=== PATIENT | male | born 1965 | race Caucasian/White ===

== ENCOUNTER 2017-03-08 19:32 | Emergency (ER) | payer OTHER ==
[~2017-03-08 19:32] MED LIST: ASPIRIN EC325 MG PO; FLUTICASONE PR50 MCG; OXAYDO5 MG; OXYCODONE/ACETA1 TA1 PO; SUDAFED CONGEST30 MG; TESTOSTERON200 MG/M1; TOPROL XL100 MG PO; TRAZODONE HCL50 MG PO
--- NOTE | 2017-03-08 21:42 | ED MAR SUMMARY ---
..... Medication Administration Record [facility] [address], [place] [id number] Patient: YAMINI YANES Visit ID: [id number] 51y, M Weight: 85.7 kg Height/Length: 65 in BMI: 31.5 ALLERGIES: Ibuprofen, Lidocaine
--- NOTE | 2017-03-08 21:42 | ED DISCHARGE INSTRUCTIONS ---
Patient: YAMINI YANES General Instructions [facility] VisitID: [id number] [place] [address] 51y, M Registration Date/Time: 03/08/2017 Recurrent maxillary, ethmoidal and frontal sinusitis INSTRUCTIONS Drink plenty of fluids for the next 24 hours. (continue with nasal spray, and may consider trying saline sinus washes). Warnings: GENERAL WARNINGS: Return or contact your physician immediately if your condition worsens or changes unexpectedly, if not improving as expected, or if other problems arise. Specifically return if problem worsens. Prescription Medications: Augmentin 875 mg: take 1 tablet orally every 12 hours for 10 days. No refill. Blue Eye 5 mg / 325 mg tablets: take 1 orally every 6 hours as needed for pain. Dispense five (5). No refill. Follow-up: Follow up with your doctor in about three days even if well. Call for an appointment. Summary of care provided to patient. Understanding of the discharge instructions verbalized by patient. ADDITIONAL INFORMATION Sinusitis [Abx Tx] The sinuses are air-filled spaces within the bones of the face. They connect to the inside of the nose. Sinusitis is an inflammation of the tissue lining the sinus cavity. Sinus inflammation can occur during a cold or hay-fever (allergies to pollens and other particles in the air) and cause symptoms of sinus congestion and fullness. A sinus infection causes fever, headache and facial pain. There is usually green or yellow drainage from the nose or into the back of the throat (post-nasal drip). Antibiotics are prescribed to treat this condition. Home Care: Drink plenty of water, hot tea, and other liquids to stay well hydrated. This thins the mucus and promotes sinus drainage. Apply heat to the painful areas of the face. Use a towel soaked in hot water. Or, informaticist the shower and direct the hot spray onto your face. This is a good way to inhale warm water vapor and get heat on your face at the same time. (Cover your mouth and nose with your hands so you can still breathe as you do this.) Use a vaporizer with products such as [employer] VapoRub (contains menthol) at night. Suck on peppermint, menthol or eucalyptus hard candies during the day. An expectorant containing guaifenesin (such as Robitussin), helps to thin the mucus and promote drainage from the sinuses. Chwz-dhd-rmuczgd decongestants may be used unless a similar medicine was prescribed. Nasal sprays work the fastest. Use one that contains phenylephrine (Esvin-synephrine, Sinex and others) or oxymetazoline (Afrin). First blow the nose gently to remove mucus, then apply the drops. Do not use these medicines more often than directed on the label or for more than three days or symptoms may worsen. You may also use tablets containing pseudoephedrine (Sudafed). Many sinus remedies combine ingredients, which may increase side effects. Read the labels or ask the pharmacist for help. NOTE: Persons with high blood pressure should not use decongestants. They can raise blood pressure. Antihistamines are useful if allergies are a cause of your sinusitis. The mildest one is chlorpheniramine (available without a prescription). The dose for adults is 8-12mg three times a day. [NOTE: Do not use chlorpheniramine if you have glaucoma or if you are a man with trouble urinating due to an enlarged prostate.] Claritin (loratidine) is an antihistamine that causes less drowsiness and is a good alternative for daytime use. Do not use nasal rinses or irrigation during an acute sinus infection, unless advised by your doctor. Rinsing may spread the infection to other sinuses. You may use acetaminophen (Tylenol) or ibuprofen (Motrin, Advil) to control pain, unless another pain medicine was prescribed. [ NOTE: If you have chronic liver or kidney disease or ever had a stomach ulcer, talk with your doctor before using these medicines.] (Aspirin should never be used in anyone under 18 years of age who is ill with a fever. It may cause severe liver damage.) Finish the full course, even if you are feeling better after a few days. Follow Up with your doctor or this facility in one week or as instructed by our staff if not improving. Get Prompt Medical Attention if any of the following occur: Facial pain or headache becomes more severe Stiff neck Unusual drowsiness or confusion, or not acting like your normal self Swelling of the forehead or eyelids Vision problems including blurred or double vision Fever of 100.4F (38C) or higher, or as directed by your healthcare provider Seizure Amoxicillin Trihydrate, Clavulanate Potassium Oral tablet What is this medicine? AMOXICILLIN; CLAVULANIC ACID (a mox i ADRIANA in; BRYSON chavez ic id) is a penicillin antibiotic. It is used to treat certain kinds of bacterial infections. It will not work for colds, flu, or other viral infections. How should I use this medicine? Take this medicine by mouth with a full glass of water. Follow the directions on the prescription label. Take at the start of a meal. Do not crush or chew. If the tablet has a score line, you may cut it in half at the score line for easier swallowing. Take your medicine at regular intervals. Do not take your medicine more often than directed. Take all of your medicine as directed even if you think you are better. Do not skip doses or stop your medicine early. Talk to your preschool program director regarding the use of this medicine in children. Special care may be needed. What side effects may I notice from receiving this medicine? Side effects that you should report to your doctor or health nonfarm animal caretaker as soon as possible: allergic reactions like skin rash, itching or hives, swelling of the face, lips, or tongue breathing problems dark urine fever or chills, sore throat redness, blistering, peeling or loosening of the skin, including inside the mouth seizures trouble passing urine or change in the amount of urine unusual bleeding, bruising unusually weak or tired white patches or sores in the mouth or throat Side effects that usually do not require medical attention (report to your doctor or health nonfarm animal caretaker if they continue or are bothersome): diarrhea dizziness headache nausea, vomiting stomach upset vaginal or anal irritation What may interact with this medicine? allopurinol anticoagulants control pills methotrexate probenecid What if I miss a dose? If you miss a dose, take it as soon as you can. If it is almost time for your next dose, take only that dose. Do not take double or extra doses. Where should I keep my medicine? Keep out of the reach of children. Store at room temperature below 25 degrees C (77 degrees F). Keep container tightly closed. Throw away any unused medicine after the expiration date. What should I tell my health care provider before I take this medicine? They need to know if you have any of these conditions: bowel disease, like colitis kidney disease liver disease mononucleosis an unusual or allergic reaction to amoxicillin, penicillin, cephalosporin, other antibiotics, clavulanic acid, other medicines, foods, dyes, or preservatives or trying to get breast-feeding What should I watch for while using this medicine? Tell your doctor or health nonfarm animal caretaker if your symptoms do not improve. Do not treat diarrhea with over the counter products. Contact your doctor if you have diarrhea that lasts more than 2 days or if it is severe and watery. If you have diabetes, you may get a false-positive result for sugar in your urine. Check with your doctor or health nonfarm animal caretaker. control pills may not work properly while you are taking this medicine. Talk to your doctor about using an extra method of control. Hydrocodone Bitartrate, Acetaminophen Oral tablet What is this medicine? ACETAMINOPHEN; HYDROCODONE (a set a BENY abhi fen; page droe KOE done) is a pain reliever. It is used to treat mild to moderate pain. How should I use this medicine? Take this medicine by mouth. Swallow it with a full glass of water. Follow the directions on the prescription label. If the medicine upsets your stomach, take the medicine with food or milk. Do not take more than you are told to take. Talk to your preschool program director regarding the use of this medicine in children. This medicine is not approved for use in children. What side effects may I notice from receiving this medicine? Side effects that you should report to your doctor or health nonfarm animal caretaker as soon as possible: allergic reactions like skin rash, itching or hives, swelling of the face, lips, or tongue breathing problems confusion feeling faint or lightheaded, falls stomach pain yellowing of the eyes or skin Side effects that usually do not require medical attention (report to your doctor or health nonfarm animal caretaker if they continue or are bothersome): nausea, vomiting stomach upset What may interact with this medicine? alcohol antihistamines isoniazid medicines for depression, anxiety, or psychotic disturbances medicines for sleep muscle relaxants naltrexone narcotic medicines (opiates) for pain phenobarbital ritonavir tramadol What if I miss a dose? If you miss a dose, take it as soon as you can. If it is almost time for your next dose, take only that dose. Do not take double or extra doses. Where should I keep my medicine? Keep out of the reach of children. This medicine can be abused. Keep your medicine in a safe place to protect it from theft. Do not share this medicine with anyone. Selling or giving away this medicine is dangerous and against the law. Store at room temperature between 15 and 30 degrees C (59 and 86 degrees F). Protect from light. Keep container tightly closed. Throw away any unused medicine after the expiration date. Discard unused medicine and used packaging carefully. Pets and children can be harmed if they find used or lost packages. What should I tell my health care provider before I take this medicine? They need to know if you have any of these conditions: brain tumor Crohn's disease, inflammatory bowel disease, or ulcerative colitis drink more than 3 alcohol-containing drinks per day drug abuse or addiction head injury heart or circulation problems kidney disease or problems going to the bathroom liver disease lung disease, asthma, or breathing problems an unusual or allergic reaction to acetaminophen, hydrocodone, other opioid analgesics, other medicines, foods, dyes, or preservatives or trying to get breast-feeding What should I watch for while using this medicine? Tell your doctor or health nonfarm animal caretaker if your pain does not go away, if it gets worse, or if you have new or a different type of pain. You may develop tolerance to the medicine. Tolerance means that you will need a higher dose of the medicine for pain relief. Tolerance is normal and is expected if you take the medicine for a long time. Do not suddenly stop taking your medicine because you may develop a severe reaction. Your body becomes used to the medicine. This does NOT mean you are addicted. Addiction is a behavior related to getting and using a drug for a non-medical reason. If you have pain, you have a medical reason to take pain medicine. Your doctor will tell you how much medicine to take. If your doctor wants you to stop the medicine, the dose will be slowly lowered over time to avoid any side effects. You may get drowsy or dizzy when you first start taking the medicine or change doses. Do not drive, use machinery, or do anything that may be dangerous until you know how the medicine affects you. Stand or sit up slowly. There are different types of narcotic medicines (opiates) for pain. If you take more than one type at the same time, you may have more side effects. Give your health care provider a list of all medicines you use. Your doctor will tell you how much medicine to take. Do not take more medicine than directed. Call emergency for help if you have problems breathing. The medicine will cause constipation. Try to have a bowel movement at least every 2 to 3 days. If you do not have a bowel movement for 3 days, call your doctor or health nonfarm animal caretaker. Too much acetaminophen can be very dangerous. Do not take Tylenol (acetaminophen) or medicines that contain acetaminophen with this medicine. Many non-prescription medicines contain acetaminophen. Always read the labels carefully. You have been given the following additional information: Sinusitis, Abx Tx Amoxicillin Trihydrate, Clavulanate Potassium Oral tablet Hydrocodone Bitartrate, Acetaminophen Oral tablet (Electronically signed by Essie Reyes A.R.N.PJerel 03/08/2017 21:41)
--- NOTE | 2017-03-08 21:42 | ED MAR SUMMARY ---
..... Medication Administration Record [facility] [address], [place] [id number] Patient: YAMINI YANES Visit ID: [id number] 51y, M Weight: 85.7 kg Height/Length: 65 in BMI: 31.5 ALLERGIES: Ibuprofen, Lidocaine
--- NOTE | 2017-03-08 21:42 | ED NURSING NOTES ---
Clinical Report - [facility] [address] [place] [address] 03/08/2017 19:32 Patient: YAMINI YANES TRIAGE Triage time 1940. Acuity: LEVEL 5. Chief Complaint: RUNNY NOSE and FEVER. Alert. No acute distress. SEPSIS SCREEN: Sepsis Screen. Negative (no infection suspected/documented). --19:56 Renetta Whitaker R.N. 19:42 03/08/17. BP: 135/81 (regular adult cuff) taken on the left arm, via an automated monitor, while sitting. HR: 96. RR: 18. O2 saturation: 96% on room air. Temp: 98.3 F (oral). Pain level now: 8/10. --19:56 Renetta Whitaker R.N. Weight: 85.7 kg stated. Height/Length: 65 inches Per Patient. BMI: 31.5. --19:43 Renetta Whitaker R.N. Medications TraZODone HCl Oral. --20:01 Renetta Whitaker R.N. Metoprolol Tartrate Oral 100 mg. --20:02 Renetta Whitaker R.N. Ranitidine HCl Oral. --20:03 Renetta Whitaker R.N. Allergies Ibuprofen. Lidocaine. --19:47 Renetta Whitaker R.N. The following entry was struck by Renetta Whitaker R.N., 20:01 (03/08/17) Reason - other. <<STRICKEN ENTRY-- Tylenol. --19:47 Renetta Whitaker R.N. --END STRIKE>>. Medication/allergy information source: the patient. --19:56 Renetta Whitaker R.N. History Arrived by private vehicle. Historian: patient. Accompanied by family and friend. Primary physician (Dr. Bryan Busch ( [facility])). ( Pt states having a hx of sinus infections/problems, approximately one week ago after doing a major cleaning in attic, pt started having head congestion, runny nose, productive yellowish cough, chills, sweats, neck feels swollen specially (left side), H/A. Denies feeling dizzy or SOB, or RODNEY. Here for further evaluation, unable to see PCP due to distance and availability.). Onset. (1 week). He has had a nasal discharge, chills, fatigue, a headache and sinus pain. No difficulty breathing. Treatment LINE ASSIGNER: (sudafed 4pm, Tylenol (9am)). PAST MEDICAL HX: Immunizations: up-to-date. SOCIAL HX: Smoker- current status unknown. No alcohol use or drug use. No infectious disease exposure. ABUSE ASSESSMENT: No report of abuse. SELF HARM ASSESSMENT: A self harm assessment was performed. The patient answered "no" to the question "Do you have thoughts of harming or killing yourself?" and "Have you recently had thoughts about harming or killing others?". FALL RISK ASSESSMENT: Fall risk assessment completed. No fall risk identified. --19:56 Renetta Whitaker R.N. ( Pt feels wheeze). --19:57 Renetta Whitaker R.N. PROBLEMS: Atrial Fibrillation. Sinus Problems. Arrhythmia. Chronic Back Pain. Abscess. Hyperlipidemia. Insomnia. --19:49 Renetta Whitaker R.N. ADDITIONAL SURGERIES: Gender reassignment. --19:49 Renetta Whitaker R.N. Tonsillectomy. --19:59 Renetta Whitaker R.N. Interventions ID band on patient. --19:56 Renetta Whitaker R.N. PHYSICAL ASSESSMENT Ambulatory to room. GENERAL / NEURO / PSYCH: Alert. Oriented X 4. Appears in no acute distress. HEENT: Right frontal sinus tenderness present. Nares within normal limits. Mouth within normal limits upon inspection. Voice within normal limits. Mucous membranes are pink. RESPIRATORY: Respirations not labored. Wheezes right lung base posteriorly. Cough. CVS: Capillary refill less than 2 seconds. SKIN: Skin is warm and dry. Normal skin turgor. --19:59 Renetta Whitaker R.N. NURSING PROGRESS NOTES The initial plan of care for this patient has been created This plan of care was discussed with the patient. Patient gowned. Reassurance given. Two patient identifiers checked. Call light placed in reach. Side rails up x 1. Bed placed in lowest position. Brakes of bed on. Patient ready for evaluation- chart flagged and [employer] notified. --19:59 Renetta Whitaker R.N. DISPOSITION / DISCHARGE Departure time: 2031 PM. Condition at departure: stable. The goals identified in the patient's plan of care were met. No learning barriers present. Discharge instructions provided and reviewed with the patient. Reviewed warnings. Reviewed medication(s) side effects, precautions, dosing and course information. Prescription(s) given to the patient. Patient verbalized understanding. Written instructions provided in Jordanian. No treatment instructions or referrals given to the patient. The patient was discharged by the nurse practitioner. He was discharged home and accompanied by accident investigator. He left the Emergency Department ambulatory and via private vehicle. Managing Editor driving. FALL RISK ASSESSMENT: Fall risk assessment completed. No fall risk identified. --20:34 Renetta Whitaker R.N. 20:25 03/08/17. BP: 118/75. HR: 78. RR: 15. O2 saturation: 97% on room air. Temp: 98.3 F (oral). Pain level now: 5/10. --20:34 Renetta Whitaker R.N. Locked/Released at 03/08/2017 20:34 by Renetta Whitaker R.N.
--- NOTE | 2017-03-08 21:42 | ED CLINICAL REPORT ---
Clinical Report - Physicians/Mid Levels [facility] [address] [place] [address] 03/08/2017 19:32 Patient: YAMINI YANSE Time Seen: 19:43; initial patient contact, initial documentation, patient care assumed. Arrived- By private vehicle. Historian- patient. HISTORY OF PRESENT ILLNESS Chief Complaint: FEVER. This started about 1 weeks ago and is still present. The illness is described as moderate. The patient has had thick, yellow sputum, a cough, a sore throat, nasal congestion and sinus pressure. He has had sinus drainage, fever, chills, a nasal discharge and left ear pain. No difficulty breathing, chest discomfort or pain, muscle aches or hoarseness. Additional history - No known contact with a sick individual. No recent travel. Similar symptoms previously: Occasionally, as bad. Recent medical care: Not recently seen/assessed. REVIEW OF SYSTEMS The patient has had a moderate, pressure-like left-sided headache. All systems otherwise negative, except as recorded above. PAST HISTORY See nurses notes. PROBLEMS: Atrial Fibrillation. Sinus Problems. Arrhythmia. Chronic Back Pain. Abscess. Hyperlipidemia. Insomnia. --19:49 Renetta Whitaker RCarroll. ADDITIONAL SURGERIES: Gender reassignment. --19:49 Renetta Whitaker R.N. SOCIAL HISTORY Light tobacco smoker. Occasional alcohol use. Not exposed to second-hand smoke at home. No drug use. No recent travel. Is a local resident. FAMILY HISTORY Negative. ADDITIONAL NOTES The nursing notes have been reviewed with agreement regarding the chief complaint, HPI, ROS, PMH and patient medications and allergies. PHYSICAL EXAM Vital Signs: 03/08/2017 19:42 BP: 135/81. HR: 96. RR: 18. O2 saturation: 96%. Temp: 98.3 F. Pain level now: 8/10. Have been reviewed as normal and appear to be correct. Appearance: Alert. No acute distress. Head: Tenderness present to percussion/palpation of the sinuses: mild right and left frontal tenderness, maxillary tenderness, ethmoid tenderness. Eyes: Pupils equal, round and reactive to light. Eyes normal inspection. ENT: Ears normal. Nose abnormal. Pharynx normal. Uvula midline. Neck: Normal inspection. Neck supple. CVS: Normal heart rate and rhythm. Heart sounds normal. Pulses normal. Respiratory: No respiratory distress. Breath sounds normal. Back: Normal inspection. Skin: Skin warm and dry. Normal skin color. No rash. Normal skin turgor. Extremities: Extremities exhibit normal ROM. No lower extremity edema. Neuro: Oriented X 3. No motor deficit. No sensory deficit. PROGRESS AND PROCEDURES Patient counseled in person regarding the patient's stable condition and diagnosis. 20:13. Differential Diagnosis: Other possible considerations: flu, uri, viral illness, sinusitis, bronchitis, allergies, pneumonia. Above considerations are based on history and physical exam. Differential diagnosis was discussed with patient. Disposition: Discharged home in good and unchanged condition (20:13). Condition: good and stable. CLINICAL IMPRESSION Recurrent maxillary, ethmoidal and frontal sinusitis INSTRUCTIONS Drink plenty of fluids for the next 24 hours. (continue with nasal spray, and may consider trying saline sinus washes). Warnings: GENERAL WARNINGS: Return or contact your physician immediately if your condition worsens or changes unexpectedly, if not improving as expected, or if other problems arise. Specifically return if problem worsens. Prescription Medications: Augmentin 875 mg: take 1 tablet orally every 12 hours for 10 days. No refill. Cowley 5 mg / 325 mg tablets: take 1 orally every 6 hours as needed for pain. Dispense five (5). No refill. Follow-up: Follow up with your doctor in about three days even if well. Call for an appointment. Summary of care provided to patient. Understanding of the discharge instructions verbalized by patient. (Electronically signed by Essie Reyes A.R.N.P. 03/08/2017 21:41)
--- NOTE | 2017-03-08 21:42 | ED NURSING NOTES ---
Clinical Report - Nurses [facility] [address] [place] [address] 03/08/2017 19:32 Patient: YAMINI YANES TRIAGE Triage time 1940. Acuity: LEVEL 5. Chief Complaint: RUNNY NOSE and FEVER. Alert. No acute distress. SEPSIS SCREEN: Sepsis Screen. Negative (no infection suspected/documented). --19:56 Renetta Whitaker R.N. 19:42 03/08/17. BP: 135/81 (regular adult cuff) taken on the left arm, via an automated monitor, while sitting. HR: 96. RR: 18. O2 saturation: 96% on room air. Temp: 98.3 F (oral). Pain level now: 8/10. --19:56 Renetta Whitaker R.N. Weight: 85.7 kg stated. Height/Length: 65 inches Per Patient. BMI: 31.5. --19:43 Renetta Whitaker R.N. Medications TraZODone HCl Oral. --20:01 Renetta Whitaker R.N. Metoprolol Tartrate Oral 100 mg. --20:02 Renetta Whitaker R.N. Ranitidine HCl Oral. --20:03 Renetta Whitaker R.N. Allergies Ibuprofen. Lidocaine. --19:47 Renetta Whitaker R.N. The following entry was struck by Renetta Whitaker R.N., 20:01 (03/08/17) Reason - other. <<STRICKEN ENTRY-- Tylenol. --19:47 Renetta Whitaker R.N. --END STRIKE>>. Medication/allergy information source: the patient. --19:56 Renetta Whitaker R.N. History Arrived by private vehicle. Historian: patient. Accompanied by family and friend. Primary physician (Dr. Bryan Busch ( [facility])). ( Pt states having a hx of sinus infections/problems, approximately one week ago after doing a major cleaning in attic, pt started having head congestion, runny nose, productive yellowish cough, chills, sweats, neck feels swollen specially (left side), H/A. Denies feeling dizzy or SOB, or RODNEY. Here for further evaluation, unable to see PCP due to distance and availability.). Onset. (1 week). He has had a nasal discharge, chills, fatigue, a headache and sinus pain. No difficulty breathing. Treatment PEACE OFFICER: (sudafed 4pm, Tylenol (9am)). PAST MEDICAL HX: Immunizations: up-to-date. SOCIAL HX: Smoker- current status unknown. No alcohol use or drug use. No infectious disease exposure. ABUSE ASSESSMENT: No report of abuse. SELF HARM ASSESSMENT: A self harm assessment was performed. The patient answered "no" to the question "Do you have thoughts of harming or killing yourself?" and "Have you recently had thoughts about harming or killing others?". FALL RISK ASSESSMENT: Fall risk assessment completed. No fall risk identified. --19:56 Renetta Whitaker R.N. ( Pt feels wheeze). --19:57 Renetta Whitaker R.N. PROBLEMS: Atrial Fibrillation. Sinus Problems. Arrhythmia. Chronic Back Pain. Abscess. Hyperlipidemia. Insomnia. --19:49 Renetta Whitaker R.N. ADDITIONAL SURGERIES: Gender reassignment. --19:49 Renetta Whitaker R.N. Tonsillectomy. --19:59 Renetta Whitaker R.N. Interventions ID band on patient. --19:56 Renetta Whitaker R.N. PHYSICAL ASSESSMENT Ambulatory to room. GENERAL / NEURO / PSYCH: Alert. Oriented X 4. Appears in no acute distress. HEENT: Right frontal sinus tenderness present. Nares within normal limits. Mouth within normal limits upon inspection. Voice within normal limits. Mucous membranes are pink. RESPIRATORY: Respirations not labored. Wheezes right lung base posteriorly. Cough. CVS: Capillary refill less than 2 seconds. SKIN: Skin is warm and dry. Normal skin turgor. --19:59 Renetta Whitaker R.N. NURSING PROGRESS NOTES The initial plan of care for this patient has been created This plan of care was discussed with the patient. Patient gowned. Reassurance given. Two patient identifiers checked. Call light placed in reach. Side rails up x 1. Bed placed in lowest position. Brakes of bed on. Patient ready for evaluation- chart flagged and DIRECTOR OF DESIGN notified. --19:59 Renetta Whitaker R.N. DISPOSITION / DISCHARGE Departure time: 2031 PM. Condition at departure: stable. The goals identified in the patient's plan of care were met. No learning barriers present. Discharge instructions provided and reviewed with the patient. Reviewed warnings. Reviewed medication(s) side effects, precautions, dosing and course information. Prescription(s) given to the patient. Patient verbalized understanding. Written instructions provided in B[place]. No treatment instructions or referrals given to the patient. The patient was discharged by the nurse practitioner. He was discharged home and accompanied by computer publisher. He left the Emergency Department ambulatory and via private vehicle. Pinball Machine Repairer driving. FALL RISK ASSESSMENT: Fall risk assessment completed. No fall risk identified. --20:34 Renetta Whitaker R.N. 20:25 03/08/17. BP: 118/75. HR: 78. RR: 15. O2 saturation: 97% on room air. Temp: 98.3 F (oral). Pain level now: 5/10. --20:34 Renetta Whitaker R.N. Locked/Released at 03/08/2017 20:34 by Renetta Whitaker R.N.
--- NOTE | 2017-03-08 21:42 | ED MED RECONCILIATION SUMMARY ---
Patient: YAMINI YANES Medication Reconciliation Report [facility] VisitID: [id number] [address] [place] [address] 51y, M Registration Date/Time: 03/08/2017 Weight: 85.7 kg Height/Length: 65 in. BMI: 31.5 ALLERGIES: Ibuprofen, Lidocaine The patient's Home Medications are listed below: THE FOLLOWING MEDICATIONS NEED TO BE RECONCILED: Metoprolol Tartrate Oral 100 mg Ranitidine HCl Oral TraZODone HCl Oral The source(s) of the original Home Medication information: patient The following Medications were given to the patient in the Emergency Department: None. The following Medications were prescribed to the patient: Augmentin 875 mg: take 1 tablet orally every 12 hours for 10 days. No refill. -- Essie Reyes, A.R.N.P. [place] 5 mg / 325 mg tablets: take 1 orally every 6 hours as needed for pain. Dispense five (5). No refill. -- Essie Reyes, A.R.N.P.
--- NOTE | 2017-03-08 21:42 | ED MED RECONCILIATION SUMMARY ---
Patient: YAMINI YANES Medication Reconciliation Report [facility] VisitID: [id number] [address] [place] [address] 51y, M Registration Date/Time: 03/08/2017 Weight: 85.7 kg Height/Length: 65 in. BMI: 31.5 ALLERGIES: Ibuprofen, Lidocaine The patient's Home Medications are listed below: THE FOLLOWING MEDICATIONS NEED TO BE RECONCILED: Metoprolol Tartrate Oral 100 mg Ranitidine HCl Oral TraZODone HCl Oral The source(s) of the original Home Medication information: patient The following Medications were given to the patient in the Emergency Department: None. The following Medications were prescribed to the patient: Augmentin 875 mg: take 1 tablet orally every 12 hours for 10 days. No refill. -- Essie Reyes, A.R.N.P. [place] 5 mg / 325 mg tablets: take 1 orally every 6 hours as needed for pain. Dispense five (5). No refill. -- Essie Reyes, A.R.N.P.
--- NOTE | 2017-03-08 21:42 | ED DISCHARGE INSTRUCTIONS ---
Patient: YAMINI YANES General Instructions [facility] VisitID: [id number] [place] [address] 51y, M Registration Date/Time: 03/08/2017 Recurrent maxillary, ethmoidal and frontal sinusitis INSTRUCTIONS Drink plenty of fluids for the next 24 hours. (continue with nasal spray, and may consider trying saline sinus washes). Warnings: GENERAL WARNINGS: Return or contact your physician immediately if your condition worsens or changes unexpectedly, if not improving as expected, or if other problems arise. Specifically return if problem worsens. Prescription Medications: Augmentin 875 mg: take 1 tablet orally every 12 hours for 10 days. No refill. [place] 5 mg / 325 mg tablets: take 1 orally every 6 hours as needed for pain. Dispense five (5). No refill. Follow-up: Follow up with your doctor in about three days even if well. Call for an appointment. Summary of care provided to patient. Understanding of the discharge instructions verbalized by patient. ADDITIONAL INFORMATION Sinusitis [Abx Tx] The sinuses are air-filled spaces within the bones of the face. They connect to the inside of the nose. Sinusitis is an inflammation of the tissue lining the sinus cavity. Sinus inflammation can occur during a cold or hay-fever (allergies to pollens and other particles in the air) and cause symptoms of sinus congestion and fullness. A sinus infection causes fever, headache and facial pain. There is usually green or yellow drainage from the nose or into the back of the throat (post-nasal drip). Antibiotics are prescribed to treat this condition. Home Care: Drink plenty of water, hot tea, and other liquids to stay well hydrated. This thins the mucus and promotes sinus drainage. Apply heat to the painful areas of the face. Use a towel soaked in hot water. Or, ditto machine operator the shower and direct the hot spray onto your face. This is a good way to inhale warm water vapor and get heat on your face at the same time. (Cover your mouth and nose with your hands so you can still breathe as you do this.) Use a vaporizer with products such as [employer] VapoRub (contains menthol) at night. Suck on peppermint, menthol or eucalyptus hard candies during the day. An expectorant containing guaifenesin (such as Robitussin), helps to thin the mucus and promote drainage from the sinuses. [id number] decongestants may be used unless a similar medicine was prescribed. Nasal sprays work the fastest. Use one that contains phenylephrine (Esvin-synephrine, Sinex and others) or oxymetazoline (Afrin). First blow the nose gently to remove mucus, then apply the drops. Do not use these medicines more often than directed on the label or for more than three days or symptoms may worsen. You may also use tablets containing pseudoephedrine (Sudafed). Many sinus remedies combine ingredients, which may increase side effects. Read the labels or ask the pharmacist for help. NOTE: Persons with high blood pressure should not use decongestants. They can raise blood pressure. Antihistamines are useful if allergies are a cause of your sinusitis. The mildest one is chlorpheniramine (available without a prescription). The dose for adults is 8-12mg three times a day. [NOTE: Do not use chlorpheniramine if you have glaucoma or if you are a man with trouble urinating due to an enlarged prostate.] Claritin (loratidine) is an antihistamine that causes less drowsiness and is a good alternative for daytime use. Do not use nasal rinses or irrigation during an acute sinus infection, unless advised by your doctor. Rinsing may spread the infection to other sinuses. You may use acetaminophen (Tylenol) or ibuprofen (Motrin, Advil) to control pain, unless another pain medicine was prescribed. [ NOTE: If you have chronic liver or kidney disease or ever had a stomach ulcer, talk with your doctor before using these medicines.] (Aspirin should never be used in anyone under 18 years of age who is ill with a fever. It may cause severe liver damage.) Finish the full course, even if you are feeling better after a few days. Follow Up with your doctor or this facility in one week or as instructed by our staff if not improving. Get Prompt Medical Attention if any of the following occur: Facial pain or headache becomes more severe Stiff neck Unusual drowsiness or confusion, or not acting like your normal self Swelling of the forehead or eyelids Vision problems including blurred or double vision Fever of 100.4F (38C) or higher, or as directed by your healthcare provider Seizure Amoxicillin Trihydrate, Clavulanate Potassium Oral tablet What is this medicine? AMOXICILLIN; CLAVULANIC ACID (a mox i ADRIANA in; BRYSON chavez ic id) is a penicillin antibiotic. It is used to treat certain kinds of bacterial infections. It will not work for colds, flu, or other viral infections. How should I use this medicine? Take this medicine by mouth with a full glass of water. Follow the directions on the prescription label. Take at the start of a meal. Do not crush or chew. If the tablet has a score line, you may cut it in half at the score line for easier swallowing. Take your medicine at regular intervals. Do not take your medicine more often than directed. Take all of your medicine as directed even if you think you are better. Do not skip doses or stop your medicine early. Talk to your sales and production manager regarding the use of this medicine in children. Special care may be needed. What side effects may I notice from receiving this medicine? Side effects that you should report to your doctor or health residential child care counselor as soon as possible: allergic reactions like skin rash, itching or hives, swelling of the face, lips, or tongue breathing problems dark urine fever or chills, sore throat redness, blistering, peeling or loosening of the skin, including inside the mouth seizures trouble passing urine or change in the amount of urine unusual bleeding, bruising unusually weak or tired white patches or sores in the mouth or throat Side effects that usually do not require medical attention (report to your doctor or health residential child care counselor if they continue or are bothersome): diarrhea dizziness headache nausea, vomiting stomach upset vaginal or anal irritation What may interact with this medicine? allopurinol anticoagulants control pills methotrexate probenecid What if I miss a dose? If you miss a dose, take it as soon as you can. If it is almost time for your next dose, take only that dose. Do not take double or extra doses. Where should I keep my medicine? Keep out of the reach of children. Store at room temperature below 25 degrees C (77 degrees F). Keep container tightly closed. Throw away any unused medicine after the expiration date. What should I tell my health care provider before I take this medicine? They need to know if you have any of these conditions: bowel disease, like colitis kidney disease liver disease mononucleosis an unusual or allergic reaction to amoxicillin, penicillin, cephalosporin, other antibiotics, clavulanic acid, other medicines, foods, dyes, or preservatives or trying to get breast-feeding What should I watch for while using this medicine? Tell your doctor or health residential child care counselor if your symptoms do not improve. Do not treat diarrhea with over the counter products. Contact your doctor if you have diarrhea that lasts more than 2 days or if it is severe and watery. If you have diabetes, you may get a false-positive result for sugar in your urine. Check with your doctor or health residential child care counselor. control pills may not work properly while you are taking this medicine. Talk to your doctor about using an extra method of control. Hydrocodone Bitartrate, Acetaminophen Oral tablet What is this medicine? ACETAMINOPHEN; HYDROCODONE (a set a BENY abhi fen; page droe KOE done) is a pain reliever. It is used to treat mild to moderate pain. How should I use this medicine? Take this medicine by mouth. Swallow it with a full glass of water. Follow the directions on the prescription label. If the medicine upsets your stomach, take the medicine with food or milk. Do not take more than you are told to take. Talk to your sales and production manager regarding the use of this medicine in children. This medicine is not approved for use in children. What side effects may I notice from receiving this medicine? Side effects that you should report to your doctor or health residential child care counselor as soon as possible: allergic reactions like skin rash, itching or hives, swelling of the face, lips, or tongue breathing problems confusion feeling faint or lightheaded, falls stomach pain yellowing of the eyes or skin Side effects that usually do not require medical attention (report to your doctor or health residential child care counselor if they continue or are bothersome): nausea, vomiting stomach upset What may interact with this medicine? alcohol antihistamines isoniazid medicines for depression, anxiety, or psychotic disturbances medicines for sleep muscle relaxants naltrexone narcotic medicines (opiates) for pain phenobarbital ritonavir tramadol What if I miss a dose? If you miss a dose, take it as soon as you can. If it is almost time for your next dose, take only that dose. Do not take double or extra doses. Where should I keep my medicine? Keep out of the reach of children. This medicine can be abused. Keep your medicine in a safe place to protect it from theft. Do not share this medicine with anyone. Selling or giving away this medicine is dangerous and against the law. Store at room temperature between 15 and 30 degrees C (59 and 86 degrees F). Protect from light. Keep container tightly closed. Throw away any unused medicine after the expiration date. Discard unused medicine and used packaging carefully. Pets and children can be harmed if they find used or lost packages. What should I tell my health care provider before I take this medicine? They need to know if you have any of these conditions: brain tumor Crohn's disease, inflammatory bowel disease, or ulcerative colitis drink more than 3 alcohol-containing drinks per day drug abuse or addiction head injury heart or circulation problems kidney disease or problems going to the bathroom liver disease lung disease, asthma, or breathing problems an unusual or allergic reaction to acetaminophen, hydrocodone, other opioid analgesics, other medicines, foods, dyes, or preservatives or trying to get breast-feeding What should I watch for while using this medicine? Tell your doctor or health residential child care counselor if your pain does not go away, if it gets worse, or if you have new or a different type of pain. You may develop tolerance to the medicine. Tolerance means that you will need a higher dose of the medicine for pain relief. Tolerance is normal and is expected if you take the medicine for a long time. Do not suddenly stop taking your medicine because you may develop a severe reaction. Your body becomes used to the medicine. This does NOT mean you are addicted. Addiction is a behavior related to getting and using a drug for a non-medical reason. If you have pain, you have a medical reason to take pain medicine. Your doctor will tell you how much medicine to take. If your doctor wants you to stop the medicine, the dose will be slowly lowered over time to avoid any side effects. You may get drowsy or dizzy when you first start taking the medicine or change doses. Do not drive, use machinery, or do anything that may be dangerous until you know how the medicine affects you. Stand or sit up slowly. There are different types of narcotic medicines (opiates) for pain. If you take more than one type at the same time, you may have more side effects. Give your health care provider a list of all medicines you use. Your doctor will tell you how much medicine to take. Do not take more medicine than directed. Call emergency for help if you have problems breathing. The medicine will cause constipation. Try to have a bowel movement at least every 2 to 3 days. If you do not have a bowel movement for 3 days, call your doctor or health residential child care counselor. Too much acetaminophen can be very dangerous. Do not take Tylenol (acetaminophen) or medicines that contain acetaminophen with this medicine. Many non-prescription medicines contain acetaminophen. Always read the labels carefully. You have been given the following additional information: Sinusitis, Abx Tx Amoxicillin Trihydrate, Clavulanate Potassium Oral tablet Hydrocodone Bitartrate, Acetaminophen Oral tablet (Electronically signed by Essie Reyes A.R.N.PJerel 03/08/2017 21:41)
== END 2017-03-08 20:30 | disposition home or self-care (01) ==
LOC: ED SRH 19:32
DX: J01.01 Acute recurrent maxillary sinusitis (principal); J01.21 Acute recurrent ethmoidal sinusitis; J01.11 Acute recurrent frontal sinusitis; E78.5 Hyperlipidemia, unspecified; Z72.0 Tobacco use; Z79.899 Other long term (current) drug therapy